=== PATIENT | male | born 1960 | race African-American/Black ===

== ENCOUNTER 2023-02-12 18:42 | Emergency (ER) | payer MEDICAID ==
[~2023-02-12] VITALS: Ht 182.9 cm; Wt 82.0 kg
[2023-02-12 18:48] VITALS: O2SAT 99
[2023-02-12] MEDS ORDERED: IBUPROFEN 600MG TABLET PO ONE (19:00)
[2023-02-12 20:10] VITALS: BP 132/80
[2023-02-12] MEDS ORDERED: IBUPROFEN 600MG TABLET PO NR (20:15)
[2023-02-12] MEDS ORDERED: IBUP-2029 MT (21:46)
[2023-02-12] MEDS ORDERED: CYCL10TA21 MT (21:46)
[2023-02-12 21:58] VITALS: PULSE 88; RESP 18; TEMP 98.1
== END 2023-02-12 21:59 | disposition home or self-care (01) ==
LOC: ER 18:42
DX: M25.512 Pain in left shoulder (principal); M54.9 Dorsalgia, unspecified; V98.8XXA Other specified transport accidents, initial encounter; Y93.89 Activity, other specified; Y92.89 Other specified places as the place of occurrence of the external cause; Y99.8 Other external cause status
CPT/HCPCS: 71045; 73030; 99284